=== PATIENT | female | born 1985 | race Caucasian/White ===

== ENCOUNTER 2019-12-27 11:58 | Emergency (ER) | payer SELFPAY ==
[2019-12-27 12:30] VITALS: BMI 25.4
--- NOTE | 2019-12-27 12:56 | PDOC ---
History of Present Illness - General Chief Complaint: Chest Pain Stated Complaint: FEVER/ HAND NUMBNESS Time Seen by Provider: 12/27/19 12:54 History Source: Patient - History of Present Illness Initial Comments: 12/27/19 14:57 Ms. Nielsen is a 34 y/o Frisian speaking woman w/no PMH p/w one week of chest discomfort that worsens with coughing. She was recently diagnosed with otitis media and is currently taking a course of amoxicillin. She reports that her pain is at the center of her chest, 7/10, aching pain, non-radiating. She also reports pain in her ribs and back when she coughs, and a worsening of the chest pain with cough. She also reports concern of ocassional paresthesias in her L 1st-3rd digits when she wakes up in the morning. She reports some ongoing chills , but no fever since initiation of abx. She denies any fevers, nausea, vomiting , shortness of breath, weakness. She denies worsening of the pain on exertion. Past History - Past Medical History Allergies/Adverse Reactions: Allergies Allergy/AdvReac Type Severity Reaction Status Date / Time No Known Allergies Allergy Verified 12/27/19 12:25 Asthma: Yes COPD: No - Psycho Social/Smoking Cessation Hx Smoking History: Never smoked Hx Alcohol Use: No Drug/Substance Use Hx: No Review of Systems - Review of Systems Able to Perform ROS?: Yes Comments:: ROS: GENERAL/CONSTITUTIONAL: No fever or chills. No weakness. HEAD, EYES, EARS, NOSE AND THROAT: No change in vision. No ear pain or discharge. No sore throat. CARDIOVASCULAR: Chest pain. No shortness of breath RESPIRATORY: Cough. No wheezing, or hemoptysis. GASTROINTESTINAL: No nausea, vomiting, diarrhea or constipation. GENITOURINARY: No dysuria, frequency, or change in urination. MUSCULOSKELETAL: No joint or muscle swelling or pain. No neck or back pain. SKIN: No rash NEUROLOGIC: No headache, vertigo, loss of consciousness, or change in strength/ sensation. ENDOCRINE: No increased thirst. No abnormal weight change HEMATOLOGIC/LYMPHATIC: No anemia, easy bleeding, or history of blood clots. ALLERGIC/IMMUNOLOGIC: No hives or skin allergy. *Physical Exam - Vital Signs Last Vital Signs Temp Pulse Resp BP Pulse Ox 98.8 F 86 20 109/63 100 12/27/19 12:25 12/27/19 12:25 12/27/19 12:25 12/27/19 12:25 12/27/19 12:25 - Physical Exam PE: GENERAL: Awake, alert, and fully oriented, in no acute distress HEAD: No signs of trauma, normocephalic, atraumatic EYES: PERRLA, EOMI, sclera anicteric, conjunctiva clear ENT: Auricles normal inspection, hearing grossly normal, nares patent, oropharynx clear without exudates. Moist mucosa NECK: Normal ROM, supple, no lymphadenopathy, JVD, or masses LUNGS: No distress, speaks full sentences, clear to auscultation bilaterally HEART: Regular rate and rhythm, normal S1 and S2, no murmurs, rubs or gallops, peripheral pulses normal and equal bilaterally. ABDOMEN: Soft, nontender, normoactive bowel sounds. No guarding, no rebound. No masses EXTREMITIES : Normal inspection, Normal range of motion, no edema. No clubbing or cyanosis NEUROLOGICAL: Cranial nerves II through XII grossly intact. Normal speech, normal gait, no focal sensorimotor deficits SKIN: Warm, Dry, normal turgor, no rashes or lesions noted Heart Score/ECG Review - History History: Slightly suspicious - Electrocardiogram EKG: Normal - Age Age: </= 45 - Risk Factors Risk Factors Heart Score: Yes Smoking History Based on the list above the patient has:: 1-2 risk factors - Troponin Troponin: </= normal limit - Score Heart Score - Total: 1 ED Treatment Course - LABORATORY CBC & Chemistry Diagram: 12/27/19 14:00 12/27/19 14:00 Medical Decision Making - Medical Decision Making 34F w/no PMH, currently on amoxicillin course for otitis media with ongoing cough, p/w 7 days of non-exertional chest pain that worsens with cough. Ddx includes ACS, although MSK pain from ongoing cough also possible. Plan: CBC CMP EKG CXR Cardiac profile Urine test Acetaminophen 650 mg po for pain control Dispo: Pending cardiac profile, likely discharge --- CXR - no acute process noted EKG - NSR, no ischemic changes noted CBC - Hg 9.7 CMP - wnl Cardiac profile - negative - negative HEART Score - 1 On reassessment, symptoms improved with acetaminophen. Given negative CK, Troponin, EKG, long duration of pain, chest pain likely non cardiac. Plan for discharge with close PCP follow up. Discharge - Discharge Information Problems reviewed: Yes Clinical Impression/Diagnosis: Chest pain, non-cardiac Condition: Stable Disposition: HOME - Admission No - Follow up/Referral - Patient Discharge Instructions Patient Printed Discharge Instructions: DI for Atypical Chest Pain Additional Instructions: Usted fue evaluada en la melissa de urgencias por dolor de pecho. Alix niveles de charity, gregorio X, y electrocardiografia estaban normales. Por favor ve a jensen doctor de cabezera lo mas pronto posible, en 7 jimenez. Regresa a la melissa de urgencias si empiezas a tener dificultad respirando, dolor que empeora o cambia , o fiebres altos. - Post Discharge Activity
[2019-12-27] MEDS ORDERED: ACETAMINOPHEN 325 MG TABLET (FP) PO ONE (13:32)
[2019-12-27] MEDS ORDERED: ACETAMINOPHEN 325 MG TABLET (FP) ONE (14:19)
[2019-12-27 14:30] LABS: BASO % 1.1 % (0-2.0); EOS % 0.4 % (0-4.5); HEMATOCRIT 30.9 % (32.4-45.2); HEMOGLOBIN 9.7 GM/dL (10.7-15.3); MCHC 31.4 g/dl (32.0-36.0); MEAN CELL VOLUME 73.3 fl (80-96); MEAN PLT VOLUME 8.9 fl (7.5-11.1); MONO % 16.9 % (3.8-10.2); NEUT % 63.6 % (42.8-82.8); PLATELET COUNT 179 K/MM3 (134-434); RBC 4.22 M/mm3 (3.60-5.2); RDW 17.7 % (11.6-15.6); WHITE BLOOD COUNT 4.1 K/mm3 (4.0-10.0)
--- NOTE | 2019-12-27 15:03 | PDOC ---
Documentation entered by Olayinka Jarrett SCRIBE, acting as scribe for Melquiades Grijalva MD. Melquiades Grijalva MD: This documentation has been prepared by the Kolby rodriguez Daniel, SCRIBE, under my direction and personally reviewed by me in its entirety. I confirm that the documentation accurately reflects all work, treatment, procedures, and medical decision making performed by me. Attending Attestation - Resident Resident Name: FrancSae - ED Attending Attestation I have performed the following: I have examined & evaluated the patient, The case was reviewed & discussed with the resident, I agree w/resident's findings & plan, Exceptions are as noted - HPI HPI: 12/27/19 13:32 The patient is a 34 year old female with a past medical history of pre diabetes here today for evaluation of chest pain. The patient reports that she has had 3 days of intermittent chest pain that radiates down her left arm, is non exertional, and is worse with lying down. She also notes associated subjective fevers, chills, cough, and rhinorrhea. Patient denies headache, lightheadedness. Denies shortness of breath. Denies nausea, vomiting, diarrhea, abdominal pain. Allergies: NKA Social history: Patient confirms tobacco use and denies drug and alcohol use. - Physicial Exam PE: 12/27/19 13:34 Vitals: Triage vital signs reviewed General Appearance: No acute distress, well nourished, well developed Head: Atraumatic Neck: Supple; No nuchal rigidity Chest Wall: Nontender Cardiac: Regular rate and rhythm, no murmurs, no rubs, no gallops Lungs: Clear to auscultation bilateral, good air movement bilaterally Extremities: Full range of motion to all extremities, no cyanosis, clubbing, or edema Skin: Warm and dry, no rashes or lesions, no rash, no petechiae Neuro: AOX3; Strength intact to all extremities, Sensation intact to all extremities Psych: Normal mood, normal affect - Medical Decision Making 12/27/19 15:02 Heart score 1 atypical chest discomfort likely viral URI with some GERD and cough discomfort EKG demonstrates no evidence ischemia labs within normal limits Findings, need for follow-up and strict return instructions discussed with patient. Heart Score/ECG Review - History History: Slightly suspicious - Electrocardiogram EKG: Normal - Age Age: </= 45 - Risk Factors Risk Factors Heart Score: Yes Smoking History Based on the list above the patient has:: 1-2 risk factors - Troponin Troponin: </= normal limit - Score Heart Score - Total: 1 - ECG Impressions Comment:: 12/27/19 15:02 EKG performed at 1254 demonstrates normal sinus rhythm no ST elevations no T wave inversions Interpreted by me.
[2019-12-27 15:20] LABS: ALBUMIN 3.8 g/dl (3.4-5.0); BILIRUBIN,TOTAL 0.2 mg/dL (0.2-1); CALCIUM 8.7 mg/dL (8.5-10.1); CREATININE 0.6 mg/dL (0.55-1.3); POTASSIUM 3.8 mmol/L (3.5-5.1); TOT PROT 7.4 g/dl (6.4-8.2)
[2019-12-27 16:05] VITALS: BP 105/62; PULSE 80; TEMP 97.8
--- NOTE | 2019-12-28 10:43 | EKG ---
Test Reason : Blood Pressure : / mmHG Vent. Rate : 079 BPM Atrial Rate : 079 BPM P-R Int : 150 ms QRS Dur : 086 ms QT Int : 368 ms P-R-T Axes : 077 079 061 degrees QTc Int : 421 ms NORMAL SINUS RHYTHM POSSIBLE LEFT ATRIAL ENLARGEMENT BORDERLINE ECG NO PREVIOUS ECGS AVAILABLE Confirmed by Barrett Mcnamara MD ([id number]) on 12/28/2019 10:43:40 AM Referred By: Confirmed By:Barrett Mcnamara MD
== END 2019-12-27 16:04 | disposition home or self-care (01) ==
LOC: JER 11:58
DX: R07.89 Other chest pain (principal)
CPT/HCPCS: 36415; 71045-TC-FY; 80053; 82550; 84484; 84703; 85025; 93005; 93010; 99285-25